=== PATIENT | female | born 1955 | race Caucasian/White ===

== ENCOUNTER 2019-12-30 08:29 | Day surgery (SDC) | payer MEDICARE, BC ==
[2019-12-30] VITALS (326 sets, daily range): BP systolic 128–175; BP diastolic 63–86; PULSE 66–98; TEMP 98.1–98.6; O2SAT 91–100
[~2019-12-30] VITALS: Ht 160 cm; Wt 77.3 kg
[~2019-12-30 08:29] MED LIST: ACTOS30 MG PO; DIABETA 5MG5 MG/TAB PO; LIPITOR 80MG80 MG PO; PRILOSEC 20MG20 MG PO; PRINIVIL40 MG PO; WELLBUTRIN XL300 M1 PO
[2019-12-30] MEDS ORDERED: PROTONIX 40MG T40 MG PO (09:00)
[2019-12-30] MEDS ORDERED: AMBIEN 5MG TABLE5 MG PO (09:01)
[2019-12-30] MEDS ORDERED: VICTOZA6 MG/ML SQ (09:01)
[2019-12-30] MEDS ORDERED: MULTI VITAMINS1 TAB PO (09:02)
[2019-12-30] MEDS ORDERED: ASPIRIN 81M81 MG/TA2 PO (09:02)
[2019-12-30] MEDS ORDERED: CALCIUM 600-D 61 TAB PO (09:03)
[2019-12-30 09:31] LABS: HEMOGLOBIN 13.6 g/dl (12.5-16.0); MEAN CELL VOLUME 93 fl (80.0-100.0); MEAN CORPUSCULAR HEMOGLOBIN 30 pg (27.0-31.0); MEAN CORPUSCULAR HGB CONC 32 g/dl (33.0-37.0); MEAN PLATELET VOLUME 9.8 fl (7.4-10.4); PLATELET COUNT 187 K/mm3 (130-400); RED BLOOD COUNT 4.51 M/mm3 (4.10-5.30); REDCELL DISTRIBUTION WIDTH-CV 13.1 % (11.5-14.5)
[2019-12-30 09:39] LABS: CALCIUM 9.7 mg/dL (8.4-10.2); CREATININE, serum 0.72 (0.52-1.25); POTASSIUM 4.8 mmol/L (3.4-5.0)
[2019-12-30 09:40] LABS: INR 0.9 (0.8-3.0); PROTHROMBIN TIME 9.9 SECONDS (9.7-12.8)
--- NOTE | 2019-12-30 10:57 | NUR ---
SEE MERGE FOR MEDICATION ADMINISTRATION TIMES FOR INTRA AND POST SEDATION ASSESSMENTS.
--- NOTE | 2019-12-30 12:45 | NUR ---
Pt arrived from [facility] on Zoll monitor - ICU monitors applied - pt AAOx4, chest "pressure" rated as 4/10. RT called for 12-lead EKG. at bedside Coronary Stenting and medication education provided - pt states "its very overwhelming, but I understand". Hypertension noted - PO antihypertensive meds have been ordered Nitroglycerine gtt infusing at 10mcg/min Call light in reach - all questions answered
--- NOTE | 2019-12-30 19:15 | NUR ---
Received report from SEGUN Sanchez.
[2019-12-31] VITALS (325 sets, daily range): BP systolic 127–142; BP diastolic 59–75; PULSE 62–73; TEMP 97.8–98.3; O2SAT 86–100
[2019-12-31 06:39] LABS: BASO % 0.5 % (0.0-2.0); EOS # 0.2 (0.0-0.7); GRAN % 64.6 % (42.2-75.2); HEMATOCRIT 40.9 % (37.0-47.0); HEMOGLOBIN 13.6 g/dl (12.5-16.0); LYMPH # 1.5 (1.2-3.4); LYMPH % 23.8 % (20.0-51.0); MEAN CELL VOLUME 92 fl (80.0-100.0); MEAN CORPUSCULAR HEMOGLOBIN 31 pg (27.0-31.0); MEAN CORPUSCULAR HGB CONC 33 g/dl (33.0-37.0); MEAN PLATELET VOLUME 9.8 fl (7.4-10.4); MONO # 0.5 (0.1-0.6); MONO % 7.4 % (1.7-9.3); PLATELET COUNT 180 K/mm3 (130-400); RED BLOOD COUNT 4.45 M/mm3 (4.10-5.30); REDCELL DISTRIBUTION WIDTH-CV 13.2 % (11.5-14.5)
[2019-12-31 06:53] LABS: CREATININE, serum 0.68 (0.52-1.25); POTASSIUM 4.2 mmol/L (3.4-5.0)
--- NOTE | 2019-12-31 07:40 | NUR ---
Report given to SEGUN Jean.
[2019-12-31] MEDS ORDERED: LIPITOR 80MG80 MG PO (08:54)
[2019-12-31] MEDS ORDERED: BRILINTA90 MG PO (08:54)
[2019-12-31] MEDS ORDERED: IMDUR 30MG30 MG/TAB PO (08:57)
[2019-12-31] MEDS ORDERED: TOPROL XL 50MG50 MG PO (09:00)
[2019-12-31] MEDS ORDERED: PRINIVIL10 MG PO (09:01)
--- NOTE | 2019-12-31 11:42 | NUR ---
SW attempted to complete initial intake. The patient was not in the room. Will attempt at a later time.
== END 2019-12-31 10:46 | disposition home or self-care (01) ==
LOC: COL.CAR 08:29 → ICU 08:29 → IMCU 18:29 → COL.CAR 12-31 10:46
PROVIDERS: Internal Medicine Cardiovascular Disease
DX: I25.710 Atherosclerosis of autologous vein coronary artery bypass graft(s) with unstable angina pectoris (principal); I25.110 Atherosclerotic heart disease of native coronary artery with unstable angina pectoris; I10 Essential (primary) hypertension; E78.5 Hyperlipidemia, unspecified; E11.9 Type 2 diabetes mellitus without complications; Z90.10 Acquired absence of unspecified breast and nipple; Z79.02 Long term (current) use of antithrombotics/antiplatelets; Z79.82 Long term (current) use of aspirin; Z79.899 Other long term (current) drug therapy
CPT/HCPCS: OP; C1725; C1769; C1874; C1887; C9600; J0583; J1644; J2250; J3010; Q9967

== ENCOUNTER 2020-01-28 14:51 | Inpatient (IN) | payer MEDICARE, BC ==
[~2020-01-28] VITALS: Ht 160 cm; Wt 77.4 kg
[~2020-01-28 14:51] MED LIST changes: +AMBIEN 5MG TABLE5 MG PO; +ASPIRIN 81M81 MG/TA2 PO; +BRILINTA90 MG PO; +CALCIUM 600-D 61 TAB PO; +IMDUR 30MG30 MG/TAB PO; +MULTI VITAMINS1 TAB PO; +PRINIVIL10 MG PO; +PROTONIX 40MG T40 MG PO; +TOPROL XL 50MG50 MG PO; +VICTOZA6 MG/ML SQ
[2020-01-28 16:00] VITALS: BP 122/57; PULSE 61; TEMP 97.8
--- NOTE | 2020-01-28 18:11 | NUR ---
Assessment completed, alert/oriented, vital signs stable, denies any chest pain or discomfort sence leaving [facility], heart RRR/ SR on tele, lungs CTA/ no resp.difficulty noted, I have notified hosptialist and cardiology of her arrival to Medical room 308, meds/allergies/pharmacy reviewed, anne-marie present at bedside, independent in the room, denies other needs at thistime, will continue to monitor
[2020-01-28 19:52] VITALS: BP 127/54; PULSE 62; TEMP 98.1
[2020-01-28 23:52] VITALS: BP 115/48; PULSE 67; TEMP 99
[2020-01-29] VITALS (382 sets, daily range): BP systolic 112–178; BP diastolic 53–81; PULSE 59–71; TEMP 97.9–98.8; O2SAT 93–98
--- NOTE | 2020-01-29 09:15 | NUR ---
Assessment complete. Pt sitting up at side of bed, awake and alert at this time. States that she feels pretty good and is hoping to go home. Medications were administered as ordered, taken well. Denies any pain or discomfort at this time. IV site is CD&I, fluids currently infusing. Nitro patch was removed from right chest, cleaned well, new patch placed on left chest. No other needs were expressed at this time. Will continue to monior. Call light is in reach.
[2020-01-29 09:43] LABS: HEMATOCRIT 37.1 % (37.0-47.0); HEMOGLOBIN 12.1 g/dl (12.5-16.0); MEAN CELL VOLUME 94 fl (80.0-100.0); MEAN CORPUSCULAR HEMOGLOBIN 31 pg (27.0-31.0); MEAN CORPUSCULAR HGB CONC 33 g/dl (33.0-37.0); MEAN PLATELET VOLUME 10.2 fl (7.4-10.4); PLATELET COUNT 179 K/mm3 (130-400); RED BLOOD COUNT 3.96 M/mm3 (4.10-5.30); REDCELL DISTRIBUTION WIDTH-CV 13.4 % (11.5-14.5)
[2020-01-29 09:47] LABS: PROTHROMBIN TIME 10.7 SECONDS (9.7-12.8)
[2020-01-29 09:49] LABS: PARTIAL THROMBOPLASTIN TIME 28.3 SECONDS (26.0-37.0)
[2020-01-29 09:54] LABS: CALCIUM 8.6 mg/dL (8.4-10.2); CREATININE, serum 0.8 (0.52-1.25); POTASSIUM 4.1 mmol/L (3.4-5.0)
--- NOTE | 2020-01-29 12:35 | NUR ---
SEE MERGE FOR ALL MEDICATION ADMINISTRATION TIMES AND INTRA AND POST SEDATION ASSESSMENT
--- NOTE | 2020-01-29 12:40 | NUR ---
Foreign Language Instructor met with patient to discuss discharge planning. Patient lives in [place] with her , Elizabeth (ph#[phone]). Patient sees Henna Tilley, Nurse Practitioner for primary care and obtains medications from [facility] in [place]. Patient has Advance Directives located in the EMR. Patient does not use any DME and reports independence with [facility]. Patient states her daughter, Melba Lau (ph#[phone]) is another good point of contact for her. Patient plans to return home upon discharge. No needs identified at this time.
--- NOTE | 2020-01-29 19:21 | NUR ---
report received from SEGUN velazco
--- NOTE | 2020-01-29 20:02 | NUR ---
TR BAND RELEASED 5 ML OF AIR. NO BLLEDING NOTED. SITE TO RIGHT RADIAL SOFT WITH NO HEMATOMA. 5 ML OF AIR LRFT IN BAND.
--- NOTE | 2020-01-29 23:12 | NUR ---
TR BAND COMPLETELY DEFLATED. SITE LOOKS GOOD, NO BLEEDING NOTED. PULSE STRONG AND PLAPABLE. NO HEMATOMA.
[2020-01-30] VITALS (485 sets, daily range): BP systolic 118–135; BP diastolic 50–64; PULSE 63–68; TEMP 98–98.1; O2SAT 83–100
[2020-01-30 06:58] LABS: BASO % 0.6 % (0.0-2.0); EOS # 0.2 (0.0-0.7); EOS % 2.8 % (0-4.0); GRAN # 3.7 (1.4-6.5); GRAN % 70.7 % (42.2-75.2); HEMATOCRIT 37.8 % (37.0-47.0); HEMOGLOBIN 12.4 g/dl (12.5-16.0); LYMPH % 18.3 % (20.0-51.0); MEAN CELL VOLUME 94 fl (80.0-100.0); MEAN CORPUSCULAR HEMOGLOBIN 31 pg (27.0-31.0); MEAN CORPUSCULAR HGB CONC 33 g/dl (33.0-37.0); MEAN PLATELET VOLUME 9.6 fl (7.4-10.4); MONO # 0.4 (0.1-0.6); MONO % 7.4 % (1.7-9.3); PLATELET COUNT 177 K/mm3 (130-400); RED BLOOD COUNT 4.04 M/mm3 (4.10-5.30); REDCELL DISTRIBUTION WIDTH-CV 13.3 % (11.5-14.5)
[2020-01-30 07:08] LABS: CALCIUM 8.5 mg/dL (8.4-10.2); CREATININE, serum 0.75 (0.52-1.25); POTASSIUM 4.1 mmol/L (3.4-5.0)
--- NOTE | 2020-01-30 07:31 | NUR ---
report given to SEGUN Charles.
--- NOTE | 2020-01-30 13:35 | NUR ---
Discharged home ambulatory to POV with driving. Instructions, education and stent card given to patient. Denies questions at this time. States prefers to call her PCP for follow up appointment. Cath site covered with LATOYA medina.
== END 2020-01-30 13:35 | disposition home or self-care (01) | DRG 247 ==
LOC: MEDICAL 14:51 → IMCU 01-29 14:40
PROVIDERS: Physician Assistant; ADMIT Internal Medicine
PROC: 027135Z Dilation of Coronary Artery, Two Arteries with Two Drug-eluting Intraluminal Devices, Percutaneous Approach (ICD-10-PCS; principal; 2020-01-29)
PROC: 4A023N7 Measurement of Cardiac Sampling and Pressure, Left Heart, Percutaneous Approach (ICD-10-PCS; 2020-01-29)
PROC: B2111ZZ Fluoroscopy of Multiple Coronary Arteries using Low Osmolar Contrast (ICD-10-PCS; 2020-01-29)
DX: I21.4 Non-ST elevation (NSTEMI) myocardial infarction (principal); E11.9 Type 2 diabetes mellitus without complications; I10 Essential (primary) hypertension; E78.5 Hyperlipidemia, unspecified; F32.9 Major depressive disorder, single episode, unspecified; I25.110 Atherosclerotic heart disease of native coronary artery with unstable angina pectoris; K21.9 Gastro-esophageal reflux disease without esophagitis; Z95.5 Presence of coronary angioplasty implant and graft; Z87.891 Personal history of nicotine dependence; Z79.84 Long term (current) use of oral hypoglycemic drugs
CPT/HCPCS: 99222-AI; 99231-AI; C9600; J1644; J1815; J2250; J3010